=== PATIENT | male | born 1965 | race Caucasian/White ===

== ENCOUNTER 2022-04-30 08:22 | Emergency (ER) | payer MEDICAID ==
[2022-04-30 08:26] VITALS: RESP 18; TEMP 98.1
[2022-04-30] MEDS ORDERED: amLODIPine 5 MG TAB PO STA (08:39)
[2022-04-30] MEDS ORDERED: SODIUM CHLORIDE 0.9% 1,000 ML IV ONE (08:39)
--- NOTE | 2022-04-30 08:56 | ED ---
General Adult HPI - General Chief complaint: Chest Pain Stated complaint: Chest pain,Dizzy,High BP Time Seen by Provider: 04/30/22 08:31 Source: patient, RN notes reviewed, old records reviewed Mode of arrival: wheelchair Limitations: no limitations - History of Present Illness Initial comments: 57-year-old male presenting for evaluation of elevated blood pressure. Patient has history of hypertension but states he is normally able to control this with diet and exercise. He was previously on lisinopril but is not currently on any medication and has not seen his primary care provider in about 5 years. He reports over the past several weeks blood pressure has been elevated in trending up. He states he has been stressed. Additionally he reports some chest discomfort which began over the past 48 hours. This does not radiate to his back. Describes as a chest tightness. He also has had a headache which she's been dealing with for some time. This was gradual in onset. No focal numbness or weakness. - Related Data Home Medications Medication Instructions Recorded Confirmed Multivitamins, Thera [Multivitamin 1 tab PO DAILY 09/03/17 09/05/17 (formulary)] Cyanocobalamin (Vitamin B-12) 1,000 mcg PO W/BRKFST 04/30/22 04/30/22 [Vitamin B-12] Previous Rx's Medication Instructions Recorded amLODIPine [Norvasc] 5 mg PO DAILY 30 Days #30 tab 04/30/22 Allergies Allergy/AdvReac Type Severity Reaction Status Date / Time Influenza Virus Vaccines Allergy dehydration Verified 04/30/22 08:26 Review of Systems ROS Statement: Those systems with pertinent positive or pertinent negative responses have been documented in the HPI. ROS Other: All systems not noted in ROS Statement are negative. Past Medical History Past Medical History: Hypertension, Prostate Disorder Additional Past Medical History / Comment(s): enlarged prostate, "borderline hypoglycemia" History of Any Multi-Drug Resistant Organisms: None Reported Past Surgical History: Hernia Repair Past Anesthesia/Blood Transfusion Reactions: No Reported Reaction Past Psychological History: No Psychological Hx Reported Past Alcohol Use History: Daily Past Drug Use History: None Reported - Past Family History Mother Family Medical History: Cancer General Exam Limitations: no limitations General appearance: alert, in no apparent distress Head exam: Present: atraumatic, normocephalic Eye exam: Present: normal appearance, PERRL ENT exam: Present: normal exam, mucous membranes dry Neck exam: Present: normal inspection. Absent: tenderness, meningismus Respiratory exam: Present: normal lung sounds bilaterally. Absent: respiratory distress, wheezes Cardiovascular Exam: Present: regular rate, normal rhythm GI/Abdominal exam: Present: soft. Absent: distended, tenderness, guarding Extremities exam: Present: normal inspection, normal capillary refill. Absent: pedal edema Neurological exam: Present: alert, oriented X3, CN II-XII intact. Absent: motor sensory deficit Psychiatric exam: Present: normal affect, normal mood Skin exam: Present: warm, dry, intact. Absent: cyanosis, diaphoretic Course Vital Signs 04/30/22 04/30/22 08:23 09:30 Temperature 98.1 F Pulse Rate 94 80 Respiratory 18 18 Rate Blood Pressure 234/144 186/110 O2 Sat by Pulse 97 98 Oximetry EKG Findings - EKG Comments: EKG Findings:: Sinus rhythm, rate of 76, no ST segment elevation, SD interval 133, QRS duration 117, QTC 438 Medical Decision Making - Medical Decision Making 57-year-old male who presented for evaluation of blood pressure. Symptoms have been ongoing for several weeks. He was previously on blood pressure medication many years ago but has not seen his primary care provider in several years. The patient otherwise is well-appearing with the exception of a very elevated blood pressure 240/130. Patient's had a mild headache which is been ongoing for several weeks. He also described the chest tightness which was very minor according to the patient. I did provide IV hydration and oral dose of Norvasc in the emergency department and checked laboratory testing as well as chest x- ray, head CT, EKG. Essentially his testing is unremarkable in the emergency department. He had calcification on CT along the falx which she was informed of that may require surveillance. I discussed possibility of admission while monitoring his blood pressure. Patient declines. Prefers discharge. He states he has a blood pressure cuff at home and to monitor closely. He will keep a journal. He will be started on Norvasc. Patient's given strict return parameters. - Lab Data Result diagrams: 04/30/22 08:47 04/30/22 08:47 Lab Results 04/30/22 04/30/22 04/30/22 Range/Units 08:47 08:47 08:47 WBC 4.8 (3.8-10.6) k/uL RBC 4.95 (4.30-5.90) m/uL Hgb 16.9 (13.0-17.5) gm/dL Hct 49.4 (39.0-53.0) % MCV 99.7 (80.0-100.0) fL MCH 34.1 (25.0-35.0) pg MCHC 34.2 (31.0-37.0) g/dL RDW 12.3 (11.5-15.5) % Plt Count 264 (150-450) k/uL MPV 6.9 Neutrophils % 60 % Lymphocytes % 31 % Monocytes % 4 % Eosinophils % 1 % Basophils % 1 % Neutrophils # 2.9 (1.3-7.7) k/uL Lymphocytes # 1.5 (1.0-4.8) k/uL Monocytes # 0.2 (0-1.0) k/uL Eosinophils # 0.1 (0-0.7) k/uL Basophils # 0.0 (0-0.2) k/uL PT 10.0 (9.0-12.0) sec INR 0.9 (<1.2) APTT 22.7 (22.0-30.0) sec Sodium 142 (137-145) mmol/L Potassium 3.9 (3.5-5.1) mmol/L Chloride 104 (98-107) mmol/L Carbon Dioxide 30 (22-30) mmol/L Anion Gap 8 mmol/L BUN 19 (9-20) mg/dL Creatinine 0.83 (0.66-1.25) mg/dL Est GFR (CKD-EPI)AfAm >90 (>60 ml/min/1.73 sqM) Est GFR (CKD-EPI)NonAf >90 (>60 ml/min/1.73 sqM) Glucose 101 H (74-99) mg/dL Calcium 9.3 (8.4-10.2) mg/dL Magnesium 2.3 (1.6-2.3) mg/dL Total Bilirubin 0.6 (0.2-1.3) mg/dL AST 41 (17-59) U/L ALT 34 (4-49) U/L Alkaline Phosphatase 61 (38-126) U/L Troponin I (0.000-0.034) ng/mL NT-Pro-B Natriuret Pep pg/mL Total Protein 8.3 H (6.3-8.2) g/dL Albumin 5.0 (3.5-5.0) g/dL 04/30/22 04/30/22 Range/Units 08:47 08:47 WBC (3.8-10.6) k/uL RBC (4.30-5.90) m/uL Hgb (13.0-17.5) gm/dL Hct (39.0-53.0) % MCV (80.0-100.0) fL MCH (25.0-35.0) pg MCHC (31.0-37.0) g/dL RDW (11.5-15.5) % Plt Count (150-450) k/uL MPV Neutrophils % % Lymphocytes % % Monocytes % % Eosinophils % % Basophils % % Neutrophils # (1.3-7.7) k/uL Lymphocytes # (1.0-4.8) k/uL Monocytes # (0-1.0) k/uL Eosinophils # (0-0.7) k/uL Basophils # (0-0.2) k/uL PT (9.0-12.0) sec INR (<1.2) APTT (22.0-30.0) sec Sodium (137-145) mmol/L Potassium (3.5-5.1) mmol/L Chloride (98-107) mmol/L Carbon Dioxide (22-30) mmol/L Anion Gap mmol/L BUN (9-20) mg/dL Creatinine (0.66-1.25) mg/dL Est GFR (CKD-EPI)AfAm (>60 ml/min/1.73 sqM) Est GFR (CKD-EPI)NonAf (>60 ml/min/1.73 sqM) Glucose (74-99) mg/dL Calcium (8.4-10.2) mg/dL Magnesium (1.6-2.3) mg/dL Total Bilirubin (0.2-1.3) mg/dL AST (17-59) U/L ALT (4-49) U/L Alkaline Phosphatase (38-126) U/L Troponin I <0.012 (0.000-0.034) ng/mL NT-Pro-B Natriuret Pep 43 pg/mL Total Protein (6.3-8.2) g/dL Albumin (3.5-5.0) g/dL Disposition Clinical Impression: Hypertension Disposition: HOME SELF-CARE Condition: Fair Instructions (If sedation given, give patient instructions): Hypertension (ED) Prescriptions: amLODIPine [Norvasc] 5 mg PO DAILY 30 Days #30 tab Is patient prescribed a controlled substance at d/c from ED?: No Referrals: Vikash Chlidress DO [Primary Care Provider] - 1-2 days Silvana Sow MD [REFERRING] - 1-2 days Mono Garcia MD [STAFF PHYSICIAN] - 1-2 days Rajani Roman III, MD [STAFF PHYSICIAN] - 1-2 days Time of Disposition: 10:16
[2022-04-30 09:03] LABS: Basophils % (A) 1 %; Eosinophils # (A) 0.1 k/uL (0-0.7); Eosinophils % (A) 1 %; HCT 49.4 % (39.0-53.0); HGB 16.9 gm/dL (13.0-17.5); Lymphocytes # (A) 1.5 k/uL (1.0-4.8); Lymphocytes % (A) 31 %; MCH 34.1 pg (25.0-35.0); MCHC 34.2 g/dL (31.0-37.0); MCV 99.7 fL (80.0-100.0); Mean Platelet Volume 6.9; Monocytes # (A) 0.2 k/uL (0-1.0); Monocytes % (A) 4 %; Neutrophils # (A) 2.9 k/uL (1.3-7.7); Neutrophils % (A) 60 %; Platelet Count 264 k/uL (150-450); RBC 4.95 m/uL (4.30-5.90); RDW 12.3 % (11.5-15.5); WBC 4.8 k/uL (3.8-10.6)
[2022-04-30 09:21] LABS: INR 0.9 (<1.2); Partial Thromboplastin Time 22.7 sec (22.0-30.0)
--- NOTE | 2022-04-30 09:21 | CT ---
EXAMINATION TYPE: CT brain wo con DATE OF EXAM: 04/30/2022 COMPARISON: None HISTORY: Chest Pain, dizziness, head ache, high BP. CT DLP: 1145.4 mGycm Automated exposure control for dose reduction was used. Helical imaging through the brain FINDINGS: Cerebrovascular calcifications are present. There is a focus of high attenuation along anterior falx, axial image 37, coronal image 22, indeterminate. Suspect a partially empty sella. Cortical atrophy i s likely age-related. No hydrocephalus. Calvarium is intact. Paranasal sinuses and mastoid air cells as visualized are well aerated. Orbits show symmetric appearance. IMPRESSION: NO ACUTE ABNORMALITY IS SUSPECTED, THERE IS A PUNCTATE FOCUS OF HIGH ATTENUATION ALONG ANTERIOR FALX WHICH MAY REPRESENT SOME OSSIFICATION OF THE FALX CEREBRI, FOLLOW-UP COULD BE PERFORMED TO ASSESS FOR STABILITY.
--- NOTE | 2022-04-30 09:22 | XR ---
EXAMINATION TYPE: XR chest 2V DATE OF EXAM: 04/30/2022 9:08 AM COMPARISON: None TECHNIQUE: XR chest 2V Frontal and lateral views of the chest. CLINICAL INDICATION:Male, 57 years old with history of Chest Pain; FINDINGS: Lungs/Pleura: There is no evidence of pleural effusion, focal consolidation, or pneumothorax. Pulmonary vascularity: Unremarkable. Heart/mediastinum: Cardiomediastinal silhouette is unremarkable. Musculoskeletal: No acute osseous pathology. IMPRESSION: No acute cardiopulmonary disease/process.
[2022-04-30 09:25] LABS: ALT 34 U/L (4-49); AST 41 U/L (17-59); African American GFR (CKD) >90 (>60 ml/min/1.73 sqM); Alkaline Phosphatase 61 U/L (38-126); Anion Gap 8 mmol/L; Blood Urea Nitrogen 19 mg/dL (9-20); Calcium 9.3 mg/dL (8.4-10.2); Carbon Dioxide 30 mmol/L (22-30); Chloride 104 mmol/L (98-107); Glucose 101 mg/dL (74-99); Magnesium 2.3 mg/dL (1.6-2.3); Non-African American GFR(CKD) >90 (>60 ml/min/1.73 sqM); Potassium 3.9 mmol/L (3.5-5.1); Sodium 142 mmol/L (137-145); Total Bilirubin 0.6 mg/dL (0.2-1.3); Total Protein 8.3 g/dL (6.3-8.2)
[2022-04-30 09:52] VITALS: BP 186/110; PULSE 80
== END 2022-04-30 10:26 | disposition home or self-care (01) ==
LOC: EC 08:22
DX: I10 Essential (primary) hypertension (principal); Z88.7 Allergy status to serum and vaccine; Z79.899 Other long term (current) drug therapy
CPT/HCPCS: 36415; 70450; 71046; 80053; 83735; 83880; 84484; 85025; 85610; 85730; 93005; 96360; 99285

== ENCOUNTER → 2023-03-11 | Outpatient (CLI) | payer MEDICAID ==
[2023-03-11 11:37] LABS: ALT 44 U/L (4-49); AST 48 U/L (17-59); African American GFR (CKD) >90 (>60 ml/min/1.73 sqM); Anion Gap 7 mmol/L; Blood Urea Nitrogen 29 mg/dL (9-20); Calcium 9.5 mg/dL (8.4-10.2); Carbon Dioxide 31 mmol/L (22-30); Chloride 103 mmol/L (98-107); Glucose 104 mg/dL (74-99); Non-African American GFR(CKD) >90 (>60 ml/min/1.73 sqM); Potassium 4.9 mmol/L (3.5-5.1); Sodium 141 mmol/L (137-145)
[2023-03-11 11:45] LABS: HCT 49.5 % (39.0-53.0); MCHC 32.4 g/dL (31.0-37.0); MCV 101.9 fL (80.0-100.0); Mean Platelet Volume 7.5; Platelet Count 254 k/uL (150-450); RBC 4.86 m/uL (4.30-5.90); RDW 12.2 % (11.5-15.5); WBC 4.8 k/uL (3.8-10.6)
[2023-03-11 11:54] LABS: T4, Free (Free Thyroxine) 0.85 ng/dL (0.78-2.19)
[2023-03-11 15:35] LABS: Chol/HDL Ratio 3.78 Ratio; LDL Cholesterol,Calculated 168.8 mg/dL (0.0-131.0)
== END | disposition home or self-care (01) ==
LOC: LABWHC1 10:30
PROVIDERS: ATTEND Nurse Practitioner Acute Care
DX: I10 Essential (primary) hypertension (principal); E78.2 Mixed hyperlipidemia; R53.83 Other fatigue
CPT/HCPCS: 36415; 80048; 80061; 83036; 84439; 84443; 84450; 84460; 85027

== ENCOUNTER → 2023-07-09 | Outpatient (CLI) | payer MEDICAID ==
[2023-07-09 11:22] LABS: ALT 34 U/L (10-49); AST 27 U/L (14-35); BUN/Creat Ratio 25.56 Ratio (12.00-20.00); Calcium 9.6 mg/dL (8.7-10.3); Carbon Dioxide 29.1 mmol/L (21.6-31.8); Chloride 106 mmol/L (96-109); Chol/HDL Ratio 3.71 Ratio; Glucose 95 mg/dL (70-110); LDL Cholesterol,Calculated 142.9 mg/dL (0.0-131.0); Potassium 5.1 mmol/L (3.5-5.5); Sodium 148 mmol/L (135-145)
== END | disposition home or self-care (01) ==
LOC: LABWHC1 08:00
PROVIDERS: ATTEND Internal Medicine Interventional Cardiology
DX: E78.2 Mixed hyperlipidemia (principal)
CPT/HCPCS: 36415; 80048; 80061; 84450; 84460

== ENCOUNTER → 2024-04-16 | Outpatient (CLI) | payer MEDICAID ==
[2024-04-16 08:38] LABS: Basophils % (A) 1 %; Eosinophils # (A) 0.1 k/uL (0-0.7); Eosinophils % (A) 2 %; HCT 44.6 % (39.0-53.0); HGB 14.3 gm/dL (13.0-17.5); Lymphocytes # (A) 1.5 k/uL (1.0-4.8); Lymphocytes % (A) 26 %; MCH 33.6 pg (25.0-35.0); MCHC 32.2 g/dL (31.0-37.0); MCV 104.5 fL (80.0-100.0); Macrocytosis Slight; Monocytes # (A) 0.3 k/uL (0-1.0); Monocytes % (A) 5 %; Neutrophils # (A) 3.8 k/uL (1.3-7.7); Neutrophils % (A) 65 %; Platelet Count 324 k/uL (150-450); RBC 4.27 m/uL (4.30-5.90); RDW 11.8 % (11.5-15.5); WBC 5.8 k/uL (3.8-10.6)
[2024-04-16 08:50] LABS: ALT 21 U/L (4-49); AST 34 U/L (17-59); African American GFR (CKD) >90 (>60 ml/min/1.73 sqM); Albumin 4.5 g/dL (3.5-5.0); Albumin/Globulin Ratio 1.7; Alkaline Phosphatase 43 U/L (38-126); Anion Gap 5 mmol/L; Blood Urea Nitrogen 24 mg/dL (9-20); Calcium 9.5 mg/dL (8.4-10.2); Carbon Dioxide 28 mmol/L (22-30); Chloride 106 mmol/L (98-107); Globulin 2.7 g/dL; Glucose 102 mg/dL (74-99); Non-African American GFR(CKD) >90 (>60 ml/min/1.73 sqM); Potassium 4.8 mmol/L (3.5-5.1); Sodium 139 mmol/L (137-145); Total Bilirubin 0.6 mg/dL (0.2-1.3); Total Protein 7.2 g/dL (6.3-8.2)
[2024-04-16 11:04] LABS: Chol/HDL Ratio 3.27 Ratio; VLDL Calculation 14.26 mg/dL (5.00-40.00)
== END | disposition home or self-care (01) ==
LOC: LABWHC1 07:19
PROVIDERS: ATTEND Family Medicine
DX: Z13.220 Encounter for screening for lipoid disorders (principal); Z13.29 Encounter for screening for other suspected endocrine disorder; I10 Essential (primary) hypertension
CPT/HCPCS: 36415; 80053; 80061; 84443; 85025